=== PATIENT | male | born 1940 | race Caucasian/White ===

== ENCOUNTER 2018-12-21 05:27 | Inpatient (IN) | payer MEDICARE, OTHER ==
[~2018-12-21] VITALS: Ht 172.7 cm; Wt 87.8 kg
[2018-12-21] MEDS ORDERED: furosemide 10 MG/1 ML 10ml inj IV ONE (05:35)
[2018-12-21 06:03] LABS: BASOPHILS # (AUTO) 0.1 X10'3 (0-0.2); BASOPHILS % (AUTO) 0.8 % (0-1); EOSINOPHILS # (AUTO) 0.4 X10'3 (0-0.9); EOSINOPHILS % (AUTO) 3.5 % (0-6); HEMATOCRIT 39.8 % (42.0-52.0); HEMOGLOBIN 13.1 g/dl (14.0-17.9); LYMPHOCYTES # (AUTO) 2.8 X10'3 (1.1-4.8); LYMPHOCYTES % (AUTO) 23.5 % (21-51); MEAN CORPUSCULAR HEMOGLOBIN 31.6 PG (27.0-31.0); MEAN CORPUSCULAR HGB CONC 32.8 g/dL (33.0-36.5); MEAN CORPUSCULAR VOLUME 96.3 FL (78-98); MEAN PLATELET VOLUME 9.2 FL (7.4-10.4); MONOCYTES # (AUTO) 0.5 X10'3 (0-0.9); MONOCYTES % (AUTO) 4.4 % (2-12); NEUTROPHILS # (AUTO) 8.1 X10'3 (1.8-7.7); NEUTROPHILS % (AUTO) 67.8 % (42-75); PLATELET COUNT 276 X10'3 (140-440); RED BLOOD COUNT 4.13 X10'6 (4.70-6.10); RED CELL DISTRIBUTION WIDTH 14.8 % (11.5-14.5); WHITE BLOOD COUNT 11.9 X10'3 (4.5-11.0)
--- NOTE | 2018-12-21 06:04 | NUR ---
AT BEDSIDE CALLING DAUGHTER TO OBTAIN LIST OF PT MEDICATIONS.
[2018-12-21 06:13] LABS: PARTIAL THROMBOPLASTIN TIME 24 SECONDS (22-32)
[2018-12-21 06:17] LABS: ALANINE AMINOTRANSFERASE 27 U/L (12-78); ALBUMIN 3.7 G/DL (3.4-5.0); ALBUMIN/GLOBULIN RATIO 0.9 (1.1-1.5); ALKALINE PHOSPHATASE 74 IU/L (46-116); ANION GAP 10 (8-16); ASPARTATE AMINO TRANSFERASE 22 U/L (10-37); BILIRUBIN,TOTAL 0.3 MG/DL (0.1-1.0); BLOOD UREA NITROGEN 29 MG/DL (7-18); BUN/CREATININE RATIO 17.1 (5.4-32.0); CALCIUM 9.5 MG/DL (8.5-10.1); CHLORIDE 109 MMOL/L (99-107); GLUCOSE 229 MG/DL (70-104); POTASSIUM 4.2 MMOL/L (3.5-5.1); SODIUM 145 MMOL/L (135-145); TOTAL CARBON DIOXIDE 25.8 MMOL/L (24-32); TOTAL PROTEIN 7.9 G/DL (6.4-8.2); eGFR 39 ML/MIN
--- NOTE | 2018-12-21 07:28 | NUR ---
PT REMAINS ON BIPAP WITHOUT DISTRESS AND VSS. AT BEDSIDE. WAITING DR. ROCHA FOR ADMISSION WHO IS ON HIS WAY.
[2018-12-21] MEDS ORDERED: magnesium 4gm in 100ml NS 100 ML IV PRN (07:40)
[2018-12-21] MEDS ORDERED: potassium Cl 20 mEq SR tablet PO PRN ×2 (07:40)
[2018-12-21] MEDS ORDERED: acetaminophen 325mg tablet PO PRN (07:40)
[2018-12-21] MEDS ORDERED: ondansetron/PF 4mg/2ml inj IV PRN (07:40)
[2018-12-21] MEDS ORDERED: magnesium 2GM in 50ml NS 50 ML IV PRN (07:40)
[2018-12-21] MEDS ORDERED: magnesium hydroxide 30ml (MOM) UD suspension PO PRN (07:40)
[2018-12-21] MEDS ORDERED: mag hydrox/Alum hydrox/simeth 30ml oral suspension PO PRN (07:40)
[2018-12-21] MEDS ORDERED: potassium CL 10mEq/100ml bag 100 ML IV PRN ×2 (07:40)
[2018-12-21] MEDS ORDERED: magnesium Cl slow-release 64mg tablet PO PRN (07:40)
[2018-12-21] MEDS ORDERED: heparin, porcine 5000 units/ml vial SQ SCH (08:00)
[2018-12-21] MEDS ORDERED: dextrose 50%-water 50ml dispensing syringe IV PRN ×2 (08:05)
[2018-12-21] MEDS ORDERED: dextrose ORAL solution 15 GM/59 ML bottle PO PRN ×2 (08:05)
[2018-12-21] MEDS ORDERED: MESSAGE TO PHARMACY PO ONE (08:05)
[2018-12-21] MEDS ORDERED: glucagon, human recombinant 1mg kit SUBCUT PRN (08:05)
[2018-12-21] MEDS: K and/or MAG REPLACEMENT MC SCH (08:06)
--- NOTE | 2018-12-21 08:08 | NUR ---
DR. ROCHA IN WITH PT.
--- NOTE | 2018-12-21 08:57 | NUR ---
WAITING BREAKFAST TRAY THEN WILL CHECK BS WHEN IT ARRIVES.
--- NOTE | 2018-12-21 09:00 | NUR ---
/D PATIENT ASSESSED: AGREE WITH AM ASSESSMENT: LUNGS CL ON BIPAP 35%, AXOX4 GOODMAN, DENIES CP, SOB, NUMBNESS/TINGLING. 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
--- NOTE | 2018-12-21 09:09 | NUR ---
ECHO At BEDSIDE.
--- NOTE | 2018-12-21 09:10 | NUR ---
accu check 202
--- NOTE | 2018-12-21 09:31 | NUR ---
deion [phone]: I called her to find out what "Beta 25 mg" means on the list of medications that was provided to earlier RNs
[2018-12-21 10:17] LABS: HEMOGLOBIN A1C 7.4 % (4.5-6.2)
[2018-12-21] MEDS ORDERED: AMLO5TAB4 PO (10:26)
[2018-12-21] MEDS ORDERED: ASPI81TA30 PO (10:26)
[2018-12-21] MEDS ORDERED: METF500T PO (10:26)
[2018-12-21] MEDS ORDERED: LOSA100T3 PO (10:26)
[2018-12-21] MEDS ORDERED: FURO40TA4 PO (10:26)
[2018-12-21] MEDS ORDERED: LEVO75TA PO (10:26)
[2018-12-21] MEDS ORDERED: LOVA20TA2 PO (10:26)
[2018-12-21] MEDS ORDERED: METO-539 PO (10:26)
--- NOTE | 2018-12-21 11:09 | NUR ---
Patient in room ED 5. I have received report from Zena DUARTE and had the opportunity to ask questions and assume patient care. Per Zena last troponin at 0953 is 0.31, unknown if Dr Lockwood has been paged. I paged Dr Lockwood.
--- NOTE | 2018-12-21 11:09 | NUR ---
PHONE REPORT TO IRIS DUARTE ACCE UNIT. FELICIA SIMMONS WILL CALL AJ REGARDING ELEVATED TROPONIN
--- NOTE | 2018-12-21 11:11 | NUR ---
Page to Dr Lockwood re:Room 309 Manuelito Garza troponin 0.31 at 0953, Elle HASKINS [id number] still in ED to be transported to [facility] now Addendum: 12/21/18 at 1114 by Elle Richardson RN Call back from Dr Lockwood, no new orders, elevated troponin expected due to CHF.
--- NOTE | 2018-12-21 11:15 | NUR ---
SPOKE TO JUSTUS IN CHEMISTRY LAB: TROPONINS ARE NOT CONSIDERED CRITICAL UNLESS THE LEVEL IS 0.6 FELICIA SIMMONS IS PAGING [place] REGARDING PATIENT'S TROPONIN OF 0.31
[2018-12-21] MEDS ORDERED: heparin 10,000 units/1 ML INJ IV ONE (11:25)
[2018-12-21] MEDS ORDERED: heparin 10,000 units/1 ML INJ IV PRN (11:25)
--- NOTE | 2018-12-21 11:49 | NUR ---
Patient arrived on unit via [facility] stable. Able to stand and walk to bed. Sat 96% on 6 LPM O2 via N/C. Transferred to bed and patient O2 sat 98% on 2 LPM O2. Patient denies chest pain or pain of any kind. No c/o SOB. Bed in low position, side rails up x2, call light in reach. at bedside.
--- NOTE | 2018-12-21 12:10 | NUR ---
PAGER ID: [phone] MESSAGE: [phone]: LATISHA - ordered hep gtt. your h&p mentions lovenox. wanting to clarify you do want hep gtt for (+) troponins? ty nurse aristeo [phone]
[2018-12-21 12:33] LABS: PARTIAL THROMBOPLASTIN TIME 24 SECONDS (22-32)
[2018-12-21] MEDS: heparin 25,000 UNIT/250ml bag 250 ML IV SCH ×2 (13:07→21:00)
--- NOTE | 2018-12-21 13:08 | NUR ---
heparin education printed and given to patient
[2018-12-21] MEDS: insulin Lispro (HumaLOG) vial - multi-dose SQ SCH (13:52)
[2018-12-21 15:00] VITALS: BP 149/66
--- NOTE | 2018-12-21 17:45 | NUR ---
Page to Dr Lockwood re:Room 309 Manuelito Garza critical troponin 0.61, Elle [id number]
--- NOTE | 2018-12-21 18:00 | NUR ---
Problems reprioritized. Patient report given, questions answered & plan of care reviewed with Roxanna DUARTE.
--- NOTE | 2018-12-21 18:00 | NUR ---
Patient in room MED 309. I have received report from IRIS DUARTE and had the opportunity to ask questions and assume patient care.
--- NOTE | 2018-12-21 20:02 | NUR ---
Page to Respiratory: 309 PT LATISHA has active order for home CPAP but needs distilled water for unit and we don't have on floor. Is this something you can provide please?
[2018-12-21] MEDS ORDERED: insulin glargine (Lantus) pen - multi-dose SQ SCH (21:00)
[2018-12-21] MEDS: furosemide 40mg/4ml inj IV SCH (21:01)
[2018-12-21 22:00] VITALS: BP 150/77
[2018-12-22 01:47] LABS: BASOPHILS # (AUTO) 0.1 X10'3 (0-0.2); BASOPHILS % (AUTO) 0.7 % (0-1); EOSINOPHILS # (AUTO) 0.4 X10'3 (0-0.9); EOSINOPHILS % (AUTO) 3.4 % (0-6); HEMOGLOBIN 12.1 g/dl (14.0-17.9); LYMPHOCYTES # (AUTO) 2.5 X10'3 (1.1-4.8); LYMPHOCYTES % (AUTO) 23.7 % (21-51); MEAN CORPUSCULAR HEMOGLOBIN 31.9 PG (27.0-31.0); MEAN CORPUSCULAR HGB CONC 33.7 g/dL (33.0-36.5); MEAN CORPUSCULAR VOLUME 94.6 FL (78-98); MEAN PLATELET VOLUME 8.5 FL (7.4-10.4); MONOCYTES # (AUTO) 0.6 X10'3 (0-0.9); MONOCYTES % (AUTO) 5.5 % (2-12); NEUTROPHILS # (AUTO) 7.1 X10'3 (1.8-7.7); NEUTROPHILS % (AUTO) 66.7 % (42-75); PLATELET COUNT 221 X10'3 (140-440); RED BLOOD COUNT 3.81 X10'6 (4.70-6.10); RED CELL DISTRIBUTION WIDTH 14.6 % (11.5-14.5); WHITE BLOOD COUNT 10.6 X10'3 (4.5-11.0)
[2018-12-22 02:00] VITALS: BP 157/68
[2018-12-22 02:10] LABS: ALANINE AMINOTRANSFERASE 22 U/L (12-78); ALBUMIN 3.2 G/DL (3.4-5.0); ALBUMIN/GLOBULIN RATIO 0.9 (1.1-1.5); ALKALINE PHOSPHATASE 60 IU/L (46-116); ANION GAP 8 (8-16); ASPARTATE AMINO TRANSFERASE 18 U/L (10-37); BILIRUBIN,TOTAL 0.5 MG/DL (0.1-1.0); BLOOD UREA NITROGEN 25 MG/DL (7-18); BUN/CREATININE RATIO 17.5 (5.4-32.0); CALCIUM 8.7 MG/DL (8.5-10.1); CHLORIDE 108 MMOL/L (99-107); CHOL/HDL RATIO 2.6 (0.00-4.99); CHOLESTEROL 95 MG/DL (0-200); CREATININE 1.43 MG/DL (0.60-1.10); GLUCOSE 150 MG/DL (70-104); HDL CHOLESTEROL 37 MG/DL (35-60); LDL CHOLESTEROL 51 MG/DL (50-100); MAGNESIUM 1.8 MG/DL (1.5-2.4); POTASSIUM 3.6 MMOL/L (3.5-5.1); SODIUM 144 MMOL/L (135-145); TOTAL CARBON DIOXIDE 27.8 MMOL/L (24-32); TOTAL PROTEIN 6.9 G/DL (6.4-8.2); TRIGLYCERIDES 80 MG/DL (20-135); eGFR 48 ML/MIN
[2018-12-22 03:21] VITALS: BP 149/66
[2018-12-22 06:53] VITALS: BP 161/61
[2018-12-22] MEDS: K and/or MAG REPLACEMENT MC SCH (08:00)
[2018-12-22] MEDS: furosemide 40mg/4ml inj IV SCH (08:20)
[2018-12-22] MEDS: heparin 25,000 UNIT/250ml bag 250 ML IV SCH (08:25)
[2018-12-22] MEDS: insulin Lispro (HumaLOG) vial - multi-dose SQ SCH (08:38)
[2018-12-22] MEDS ORDERED: FURO40TA4 PO (09:39)
--- NOTE | 2018-12-22 10:28 | NUR ---
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 Also made him aware of Lisinopril that was held this am r/t a 103 sbp, MD rush'd this hold. Attempted to call for patient to have followup appointment with there MD in [facility] and was unsuccessful. Patient's will call tomorrow to make follow-up appointment. Faxed changed medication orders to [facility] pharmacy in [facility], noted they received orders. Addendum: 12/22/18 at 1057 by Penelope Ramires RN Charted the sentence on 103 SBP and hold lisinopril on wrong patient, this patient does not take lisinopril.
[2018-12-22 11:00] VITALS: BP 170/62
--- NOTE | 2018-12-22 11:51 | NUR ---
DM Consult: Pt A1C 7.4 hx T2DM and chronic dementia AOx3. Pending d/c currently and not appropriate for DM ed at this time given hx. Addendum: 12/22/18 at [address] Amended: Links added.
--- NOTE | 2018-12-22 12:10 | NUR ---
Discharged patient without event at this time via W/C per [facility] staff per family private vehicle, discussed discharge instructions with patient and answered any questions he had, verbalized understanding. New medication order sent via fax to their pharmacy in [place]. D/C IV and tele. Belongings sent with patient. Eager to go home.
[2018-12-23 05:41] LABS: ABG BASE EXCESS -3.6 mmol/L (-2.0-3.0); ABG HCO3 21.8 mmol/L (22.0-26.0); ABG OXYGEN SATURATION 97.8 % (95-98); ABG PCO2 (T) 39.5 mmHg (35.0-45.0); ABG PH (T) 7.356 (7.350-7.450); ABG PO2 (T) 106.1 mmHg (83-108); ALLEN'S TEST Positive; FCOHb 0.2 % (0.5-1.5); FMetHb 0.3 % (0.3-1.12); FO2Hb 97.3 % (94-100); MINUTE VOLUME 17 L/min; PATIENT TEMPERATURE 36.4; RESPIRATORY RATE 16 b/min; RESPIRATORY RATE (OBSERVED) 25 b/min; TOTAL HEMOGLOBIN 13.6 G/dl (14.0-17.9)
== END 2018-12-22 12:10 | disposition home or self-care (01) | DRG 280 ==
LOC: ER 05:29 → ED HOLD 09:00 → MED 3N 11:40
PROVIDERS: ADMIT Family Medicine; ATTEND Family Medicine
PROC: 5A09357 Assistance with Respiratory Ventilation, Less than 24 Consecutive Hours, Continuous Positive Airway Pressure (ICD-10-PCS; principal; 2018-12-21)
PROC: 5A09357 Assistance with Respiratory Ventilation, Less than 24 Consecutive Hours, Continuous Positive Airway Pressure (ICD-10-PCS; 2018-12-22)
DX: I21.A1 Myocardial infarction type 2 (principal); I50.23 Acute on chronic systolic (congestive) heart failure; J96.00 Acute respiratory failure, unspecified whether with hypoxia or hypercapnia; N17.0 Acute kidney failure with tubular necrosis; I13.0 Hypertensive heart and chronic kidney disease with heart failure and stage 1 through stage 4 chronic kidney disease, or unspecified chronic kidney disease; E11.22 Type 2 diabetes mellitus with diabetic chronic kidney disease; N18.3 Chronic kidney disease, stage 3 (moderate); D72.829 Elevated white blood cell count, unspecified; E03.9 Hypothyroidism, unspecified; E78.5 Hyperlipidemia, unspecified; F03.90 Unspecified dementia, unspecified severity, without behavioral disturbance, psychotic disturbance, mood disturbance, and anxiety; G47.33 Obstructive sleep apnea (adult) (pediatric); I25.10 Atherosclerotic heart disease of native coronary artery without angina pectoris; Z79.84 Long term (current) use of oral hypoglycemic drugs; Z83.3 Family history of diabetes mellitus; Z95.1 Presence of aortocoronary bypass graft; Z79.4 Long term (current) use of insulin; Z79.899 Other long term (current) drug therapy; Z79.82 Long term (current) use of aspirin
CPT/HCPCS: 36415; 36600; 71045; 80053; 80061; 82803; 82948; 83036; 83735; 83880; 84484; 85018; 85025; 85610; 85730; 93005; 93306; 94660; 96374; 99285; G0378; J1644; J1815; J1940